=== PATIENT | male | born 1955 | race African-American/Black ===

== ENCOUNTER 2018-09-07 20:16 | Emergency (ER) | payer OTHER ==
[2018-09-07] MEDS ORDERED: SODIUM CHLORIDE 0.9% 1,000 ML IV STA (20:26)
[2018-09-07] MEDS ORDERED: KETOROLAC 30 MG/ML 1 ML VIAL IVP STA ×2 (20:26→21:22)
[2018-09-07] MEDS ORDERED: SODIUM CHLORIDE 0.9% 500 ML 500 ML IV STA (20:26)
--- NOTE | 2018-09-07 20:29 | ED ---
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 He states that sharp in nature. Moderate to severe in pain and does some 1 increase with movements. No cough or phlegm production fevers chills sweats. He was brought in by EMS she was given 325 mg aspirin and nitroglycerin no relief the pain was a blood pressure did drop from 126 systolic to 86. He was given a fluid bolus and did improve his blood pressure. No other complaints no other modifying factors. He is not recall any incident that may have injured his neck or trapezius area where his pointing. MD Complaint: chest pain - Related Data Home Medications Medication Instructions Recorded Confirmed Acetaminophen [Tylenol] 650 mg PO Q4H PRN 09/07/18 09/07/18 Calcium 1000mg/Magnesium 500mg 1 tab PO TID PRN 09/07/18 09/07/18 Chlorpheniramine Maleate 4 mg PO Q4H PRN 09/07/18 09/07/18 [Chlor-Trimeton] Ibuprofen [Motrin] 600 mg PO Q6H PRN 09/07/18 09/07/18 Multivitamins, Thera [Multivitamin 1 tab PO DAILY 09/07/18 09/07/18 (formulary)] Ondansetron HCl [Zofran] 8 mg PO Q6H PRN 09/07/18 09/07/18 Ondansetron [Zofran] 4 mg IM Q6H PRN 09/07/18 09/07/18 Thiamine [Vitamin B-1] 100 mg PO DAILY 09/07/18 09/07/18 busPIRone HCl [Buspar] 10 mg PO DIRECTED PRN 09/07/18 09/07/18 cloNIDine HCL [Catapres] 0.1 mg PO Q4H PRN 09/07/18 09/07/18 traZODone HCL 50 - 150 mg PO HS PRN 09/07/18 09/07/18 Previous Rx's Medication Instructions Recorded Orphenadrine [Norflex] 100 mg PO Q12H #7 tablet.er 09/07/18 predniSONE 20 mg PO BID #10 tab 09/07/18 Allergies Allergy/AdvReac Type Severity Reaction Status Date / Time No Known Allergies Allergy Verified 09/07/18 20:37 Review of Systems ROS Statement: Those systems with pertinent positive or pertinent negative responses have been documented in the HPI. ROS Other: All systems not noted in ROS Statement are negative. EKG Findings - EKG Results: EKG: interpreted by ERMD, sinus rhythm (Normal sinus rhythm a 74. Interval 186 QRS duration 82 QT since QTC 376/417 low-voltage QRS no acute ST-T wave changes. This is consistent with that submitted by EMS.) General Exam - General Exam Comments Initial Comments: This a well-developed well-nourished awake alert oriented times 3 male General appearance: alert, in no apparent distress Head exam: Present: atraumatic, normocephalic, normal inspection Eye exam: Present: normal appearance, PERRL, EOMI. Absent: scleral icterus, conjunctival injection, periorbital swelling ENT exam: Present: mucous membranes dry Neck exam: Present: normal inspection, tenderness (Tennis palpation of the left lateral neck musculature and trapezius muscle. This does reproduce patient's pain.), full ROM. Absent: meningismus, lymphadenopathy Respiratory exam: Present: normal lung sounds bilaterally, chest wall tenderness (Upper chest wall tenderness palpation no step-off or crepitation.). Absent: respiratory distress, wheezes, rales, rhonchi, stridor Cardiovascular Exam: Present: regular rate, normal rhythm, normal heart sounds. Absent: systolic murmur, diastolic murmur, rubs, gallop, clicks GI/Abdominal exam: Present: soft, normal bowel sounds. Absent: distended, tenderness, guarding, rebound, rigid Extremities exam: Present: normal inspection, full ROM, normal capillary refill. Absent: tenderness, pedal edema, joint swelling, calf tenderness Back exam: Present: normal inspection Neurological exam: Present: alert, oriented X3, CN II-XII intact Psychiatric exam: Present: normal affect, normal mood Skin exam: Present: warm, dry, intact, normal color. Absent: rash Course Vital Signs 0409/07/18 09/07/18 20:23 20:37 20:40 Temperature 98.9 F Pulse Rate 88 Respiratory 18 Rate Blood Pressure 101/57 91/57 91/57 O2 Sat by Pulse 95 96 96 Oximetry 09/07/18 09/07/18 09/07/18 20:50 21:00 21:10 Temperature Pulse Rate 73 68 67 Respiratory 19 23 20 Rate Blood Pressure 103/63 103/63 115/38 O2 Sat by Pulse 100 Oximetry 09/07/18 09/07/18 09/07/18 21:30 21:40 21:50 Temperature Pulse Rate 70 72 69 Respiratory Rate Blood Pressure 88/45 87/44 99/48 O2 Sat by Pulse 96 95 97 Oximetry 09/07/18 22:00 Temperature Pulse Rate 69 Respiratory Rate Blood Pressure 99/48 O2 Sat by Pulse 97 Oximetry Chest Pain MDM - MDM I did review the imaging and report no acute findings. Patient workup thus far is negative for evidence of cardiac or pulmonary disease he presentation is consistent with myofascial pain and some radicular findings. Patient will be discharged back to [facility] [place]. We placed on anti-inflammatories as well as muscle relaxers. Disposition Clinical Impression: Myofascial pain on left side, Trapezius muscle spasm, Atypical chest pain, Radicular pain in left arm Disposition: HOME SELF-CARE Condition: Good Instructions (If sedation given, give patient instructions): Muscle Spasm (ED), Cervical Radiculopathy (ED) Prescriptions: Orphenadrine [Norflex] 100 mg PO Q12H #7 tablet.er predniSONE 20 mg PO BID #10 tab Is patient prescribed a controlled substance at d/c from ED?: No Referrals: None,Stated [Primary Care Provider] - 1-2 days
[2018-09-07 20:47] LABS: Basophils % (A) 1 %; Eosinophils # (A) 0.3 k/uL (0-0.7); Eosinophils % (A) 6 %; HCT 41.9 % (39.0-53.0); HGB 14.4 gm/dL (13.0-17.5); Lymphocytes # (A) 2.1 k/uL (1.0-4.8); Lymphocytes % (A) 41 %; MCH 28.6 pg (25.0-35.0); MCHC 34.4 g/dL (31.0-37.0); MCV 83.4 fL (80.0-100.0); Mean Platelet Volume 7.9; Monocytes # (A) 0.3 k/uL (0-1.0); Monocytes % (A) 6 %; Neutrophils # (A) 2.2 k/uL (1.3-7.7); Neutrophils % (A) 43 %; Platelet Count 214 k/uL (150-450); RBC 5.02 m/uL (4.30-5.90); RDW 15.5 % (11.5-15.5); WBC 5.1 k/uL (3.8-10.6)
[2018-09-07 20:55] LABS: ALT 38 U/L (21-72); AST 24 U/L (17-59); Albumin 3.7 g/dL (3.5-5.0); Alkaline Phosphatase 43 U/L (38-126); Anion Gap 6 mmol/L; Blood Urea Nitrogen 17 mg/dL (9-20); Calcium 9.5 mg/dL (8.4-10.2); Carbon Dioxide 24 mmol/L (22-30); Chloride 110 mmol/L (98-107); Creatine Kinase 94 U/L (55-170); Glucose 175 mg/dL (74-99); Magnesium 2.3 mg/dL (1.6-2.3); Potassium 4.3 mmol/L (3.5-5.1); Sodium 140 mmol/L (137-145); Total Bilirubin 0.4 mg/dL (0.2-1.3); Total Protein 6.4 g/dL (6.3-8.2)
[2018-09-07 21:05] LABS: Prothrombin Time 10.9 sec (9.0-12.0)
[2018-09-07 21:18] LABS: Partial Thromboplastin Time 18.9 sec (22.0-30.0)
[2018-09-07] MEDS ORDERED: CYCLOBENZAPRINE 10 MG TAB PO STA (21:23)
--- NOTE | 2018-09-07 22:00 | XR ---
EXAMINATION TYPE: XR chest 2V DATE OF EXAM: 09/07/2018 COMPARISON: NONE HISTORY: Chest pain TECHNIQUE: Frontal and lateral views of the chest are obtained. FINDINGS: There is no heart failure nor confluent pneumonic infiltrate. Costophrenic angles are ginger r. There are chest leads. Bony thorax is intact. IMPRESSION: No active cardiopulmonary disease. Normal heart.
[2018-09-07] MEDS ORDERED: LORazepam 2 MG/ML INJ IV STA (22:09)
[2018-09-07] MEDS ORDERED: methylPREDNISolone SOD SUCCI 125 MG/2 ML VIAL IV STA (22:10)
[2018-09-07] MEDS ORDERED: ACETAMINOPHEN TAB 500 MG TAB PO STA (22:11)
[2018-09-07 22:26] VITALS: BP 101/55; PULSE 63; RESP 18; TEMP 98
== END 2018-09-07 22:29 | disposition home or self-care (01) ==
LOC: EC 20:16
DX: R07.89 Other chest pain (principal); M62.838 Other muscle spasm; M54.10 Radiculopathy, site unspecified; I51.7 Cardiomegaly
CPT/HCPCS: 36415; 93005; 80053; 82550; 83735; 84484; 85025; 85610; 85730; 71046; 99285; 96374; 96375 ×2; 96376; 96361 ×2; J2060; J2930; J1885